=== PATIENT | female | born 1960 | race Caucasian/White ===

== ENCOUNTER 2016-12-17 13:04 | Emergency (ER) | payer OTHER ==
[~2016-12-17] VITALS: Wt 127.0 kg
[~2016-12-17 13:04] MED LIST: ADV25050 INHALATION; ALBU18HF INHALATION; BENA10TA48 PO; FURO20TA3 PO; HYDR-906 PO; IBUP-1542 PO; LEVO100T82 PO; METF-382 PO; MONT10TA24 PO; POTA20TA96 PO; SIMV40TA2 PO; TRIA1CAP PO
[2016-12-17 15:00] LABS: URINE BLOOD (Dip) POC Negative (NEGATIVE)
--- NOTE | 2016-12-17 15:13 | RADRPT ---
PROCEDURE: XR Chest. CLINICAL INDICATION: Cough. Left-sided chest pain. TECHNIQUE: Single frontal chest x-ray. COMPARISON: None. FINDINGS: The lungs are clear. No focal opacification is seen. The cardiomediastinal silhouette is unremarka ble. The osseous structures are unremarkable. Old right posterior fifth rib fracture is noted. IMPRESSION: No radiographic acute cardiopulmonary abnormalities. RPTAT: BB .Lars Mckay MD, MD Date Time Electronically viewed and signed by .Lars Mckay MD, on 12/17/2016 15:13 .O/
[2016-12-17] MEDS ORDERED: NAPR-260 PO (15:49)
--- NOTE | 2016-12-17 16:02 | ERD ---
ER Documentation Chief Complaint Date/Time DATE: 12/17/16 TIME: 15:58 Chief Complaint LEFT RIB PAIN X1 WEEK, COUGH, NO INJURY, NO CP HPI Patient is a 56-year-old female who presents the ED with left back rib pain, cough, runny nose and dysuria and urgency. She states that she has had the pain for 1 week on and off. She denies shortness of breath or difficulty breathing. She denies chest pain. She denies abdominal pain, nausea, vomiting or diarrhea. She denies headache or dizziness. Denies numbness or tingling. No other complaints. Denies fever or chills. ROS All systems reviewed and are negative except as per history of present illness. Medications Home Meds Active Scripts Naproxen* (Naprosyn*) 500 Mg Tablet, 500 MG PO BID Y for PAIN AND/OR INFLAMMATION, #30 TAB Prov:URIEL GIBBS PA-C 12/17/16 Ibuprofen* (Motrin*) 600 Mg Tab, 600 MG PO Q6, #20 TAB Prov:TD BAUTISTA NP 10/19/16 Hydrocodone/Acetaminophen ([place] 5-325 Tablet) 1 Each Tablet, 1 TAB PO Q6H Y for PAIN, #10 TAB Prov:TD BAUTISTA NP 10/19/16 Reported Medications Salmeterol Xinaf/Fluticasone* (Advair*) 250-50 Diskus Inhaler, 1 INH INHALATION BID, #1 INHALER 10/19/16 Montelukast Sodium* (Montelukast Sodium*) 10 Mg Tablet, 10 MG PO QHS, #30 TAB 10/19/16 Albuterol Sulfate* (Ventolin HFA*) 18 Gm Hfa.aer.ad, 2 PUFF INHALATION Q6H, #1 INHALER 10/19/16 Potassium Chloride* (Potassium Chloride*) 20 Meq Tablet.er, 20 MEQ PO BID, TAB.SA 10/19/16 Simvastatin* (Zocor*) 40 Mg Tablet, 40 MG PO QHS, #30 TAB 10/19/16 Benazepril Hcl* (Benazepril Hcl*) 10 Mg Tablet, 10 MG PO DAILY, #30 TAB 10/19/16 Metformin Hcl* (Metformin Hcl*) 500 Mg Tablet, 500 MG PO WITH BREAKFAST, #30 TAB 10/19/16 Furosemide* (Furosemide*) 20 Mg Tablet, 20 MG PO BID, #30 TAB 10/19/16 Triamterene/Hydrochlorothiazid (Dyazide 37.5-25 Capsule) 1 Each Capsule, 1 EACH PO DAILY, CAP 10/19/16 Levothyroxine Sodium* (Levoxyl*) 100 Mcg Tablet, 100 MCG PO BEFORE BREAKFAST, # 30 TAB 10/19/16 Allergies Allergies: Coded Allergies: No Known Allergy (Unverified , 12/17/16) PMhx/Soc History of Surgery: Yes (VARICOSE VEIN SX, ) Anesthesia Reaction: No Hx Neurological Disorder: No Hx Respiratory Disorders: Yes (ASTHMA) Hx Cardiac Disorders: Yes (HTN) Hx Psychiatric Problems: No Hx Miscellaneous Medical Probl: Yes (DM, THYROID) Hx Alcohol Use: No Hx Substance Use: No Hx Tobacco Use: No Physical Exam Vitals Vital Signs Date Time Temp Pulse Resp B/P Pulse Ox O2 Delivery O2 Flow Rate FiO2 12/17/16 13:14 98.2 99 18 173/100 97 Physical Exam GENERAL: Well-developed, well-nourished female. Appears in no acute distress. HEAD: Normocephalic, atraumatic. EYES: Pupils are equally reactive bilaterally. EOMs grossly intact. No conjunctival erythema. ENT: Moist mucous membranes. No uvula deviation. No kissing tonsils. No exudates. NECK: Supple. No lymphadenopathy or thyromegaly. No meningismus. negative kernig. negative brudinski. LUNG: Clear to auscultation bilaterally. No rhonchi, wheezing, rales or coarse breath sounds. HEART: Regular rate and rhythm. No murmurs, rubs or gallops. ABDOMEN: No scars, ecchymosis or rashes noted. Soft, nontender, and nondistended. Positive bowel sounds in all four quadrants. No rebound tenderness , no guarding. (-) McBurneys point tenderness. No CVA tenderness. BACK: No midline tenderness. tenderness to left upper back. no chest tenderness. Extremities: Equal pulses bilaterally. No peripheral clubbing, cyanosis or edema. No unilateral leg swelling. NEUROLOGIC: Alert and oriented. Moving all four extremities. 5/5 strength in all extremities. Normal speech. Steady gait. SKIN: Normal color. Warm and dry. No rashes or lesions. Capillary refill < 2 seconds Results 24 hrs Laboratory Tests Test 12/17/16 15:02 Bedside Urine Blood Negative Bedside Urine Glucose (UA) Negative Bedside Urine Ketones (LAB) Negative Bedside Urine Leukocyte Esterase (L Negative Bedside Urine Nitrite (LAB) Negative Bedside Urine Protein (LAB) Negative Bedside Urine pH (LAB) 6.0 Procedures/MDM ER COURSE: I kept the patient and/or family informed of laboratory and diagnostic imaging results throughout the emergency room course. EKG, MONITORS, & DIAGNOSTIC IMAGING: [place] [id number] Radiology Main Line: [phone] DIAGNOSTIC IMAGING REPORT Patient: EMMANUEL TA : 1960 Age: 56 Sex: F MR #: [id number] DOS: 12/17/16 1449 Ordering MD: URIEL GIBBS PA-C Location: [facility] Room/Bed: PROCEDURE: XR Chest. CLINICAL INDICATION: Cough. Left-sided chest pain. TECHNIQUE: Single frontal chest x-ray. COMPARISON: None. FINDINGS: The lungs are clear. No focal opacification is seen. The cardiomediastinal silhouette is unremarkable. The osseous structures are unremarkable. Old right posterior fifth rib fracture is noted. IMPRESSION: No radiographic acute cardiopulmonary abnormalities. RPTAT: BB .Lars Mckay MD, MD Date Time Electronically viewed and signed by .Lars Mckay MD, on 12/17/2016 15:13 .O/ CC: URIEL GIBBS PA-C LAB INTERPRETATION: UA showed no evidence of leukocytes, nitrites or hematuria. MEDICAL DECISION MAKING: This is a 56-year-old female who presents with left back pain and dysuria. Vital signs were reviewed. Patient is afebrile. Patient is not hypoxic. Patient is not toxic or ill-appearing. Patient likely has muscle strain. Low suspicion for cauda equine syndrome, spinal epidural hematoma, spinal epidural abscess, osteomyelitis, fracture, aortic dissection, AAA, pyelonephritis, nephrolithiasis, septic stone, obstructed stone. Patient does not have hematuria or nitrites. Patient does not have a UTI and have low suspicion for nephrolithiasis. Patient's blood pressure is 173/100 here in the ED. She does have a history of hypertension and takes an aspirin in the mornings. However she does not show signs of hypertensive urgency, emergency or endorgan damage or neurological issues.. Low suspicion for intracranial hemorrhage, meningitis, intracranial mass, concussion, temporal arteritis, stroke, elevated intracranial pressure, seizure. I have consulted with Dr. Oliva who has reviewed her vitals and plan and agrees with plan. DISCHARGE: At this time, patient is stable for discharge and outpatient management with no new complaints during the ER course. Patient was sent home with Alfredo. Patient to follow-up with primary care regarding better management of her blood pressure.. Patient will be discharged home with instructions to recheck for new or worsening symptoms such as fever, nausea, weakness, LOC and to follow up with primary care in the next 1-2 days. Patient was advised to return to the ER for any new or worsening symptoms. Plan was discussed and patient and/or family understands and agrees. Home instructions were given. Departure Diagnosis: Primary Impression: Rib pain Additional Impression: Hypertension Hypertension type: essential hypertension Qualified Code: I10 - Essential hypertension Condition: Stable Patient Instructions: Rib Contusion Referrals: ARLETH GUADARRAMA (PCP) Additional Instructions: Llame al doctor BERTRAM y teddy lise CARMEN PARA DENTRO DE 1-2 GOFF.Dgale a la secretaria que nosotros le instruimos hacer esta carmen.Avise o llame si herbert condicin se empeora antes de la carmen. Regresa aqui si peor o no mejor. URIEL GIBBS PA-C Dec 17, 2016 16:02
== END 2016-12-17 16:05 | disposition home or self-care (01) ==
LOC: FTE 13:04
DX: R07.81 Pleurodynia (principal); I10 Essential (primary) hypertension; J45.909 Unspecified asthma, uncomplicated; E11.9 Type 2 diabetes mellitus without complications; E03.9 Hypothyroidism, unspecified; Z79.84 Long term (current) use of oral hypoglycemic drugs
CPT/HCPCS: 71010; 81003

== ENCOUNTER 2017-05-23 11:14 | Emergency (ER) | payer OTHER ==
[~2017-05-23] VITALS: Ht 160 cm; Wt 130.0 kg
[~2017-05-23 11:14] MED LIST changes: -METF-382 PO; +METF500T4 PO; +NAPR-260 PO
[2017-05-23 11:15] VITALS: Ht 160 cm; Wt 130.0 kg
[2017-05-23] MEDS ORDERED: KETOROLAC 60 MG INJ IM STA (11:51)
[2017-05-23] MEDS ORDERED: morphine 10 MG INJ IM ONE (12:00)
--- NOTE | 2017-05-23 13:14 | RADRPT ---
PROCEDURE: Ultrasound of the bilateral lower extremity venous system. CLINICAL INDICATION: Bilateral leg pain and swelling, deep venous thrombosis TECHNIQUE: Davenport scale with and without compression, color doppler, spectral doppler of the venous system of the bilateral lower extremities was performed. Venous augmentation maneuvers were utilized . COMPARISON: No prior studies are available for comparison. FINDINGS: RIGHT: Common femoral vein: Patent. Femoral vein: Patent. Popliteal vein: Patent. Calf veins: Patent. No soft tissue abnormalities are identified. LEFT: Common femoral vein: Patent. Femoral vein: Patent. Popliteal vein: Patent. Calf veins: Patent. No soft tissue abnormalities are identified. IMPRESSION: No evidence of a deep vein thrombosis within the bilateral lower extremities. RPTAT: AADD .Pato Mcfadden MD, MD Date Time Electronically viewed and signed by .Pato Mcfadden MD, on 05/23/2017 13:13 .B/
[2017-05-23] MEDS ORDERED: METH500T PO (14:08)
[2017-05-23] MEDS ORDERED: HYDR-906 PO (14:08)
[2017-05-23] MEDS ORDERED: NAPR-688 PO (14:08)
[2017-05-23] MEDS ORDERED: GABA300C PO (14:10)
--- NOTE | 2017-05-23 14:16 | ERD ---
ER Documentation Chief Complaint Date/Time DATE: 05/23/17 TIME: 14:11 Chief Complaint 10 lower back pain that radiates down bilat legs x 1 month HPI This 56-year-old female presents with bilateral lower back pain as well as leg pain for 1 month. States that most of her pain is in her feet where she has a feeling of tingling and pain. She has a history of diabetes. She is still ambulatory. She has had no trauma recently. She has no fever chills. She does have a history of a right lower extremity DVT. ROS All systems reviewed and are negative except as per history of present illness. Medications Home Meds Active Scripts Gabapentin* (Neurontin*) 300 Mg Capsule, 300 MG PO BID, #60 CAP Prov:MACI MARTINEZ DO 05/23/17 Methocarbamol* (Robaxin*) 500 Mg Tab, 500 MG PO Q8, #14 TAB Prov:JUANMACI DO 05/23/17 Hydrocodone/Acetaminophen ([place] 5-325 Tablet) 1 Each Tablet, 1 EACH PO Q6, #14 TAB Prov:JUANMACI DO 05/23/17 Naproxen* (Naproxen*) 500 Mg Tablet, 500 MG PO BID Y for PAIN, #20 TAB Prov:MACI MARTINEZ DO 05/23/17 Naproxen* (Naprosyn*) 500 Mg Tablet, 500 MG PO BID Y for PAIN AND/OR INFLAMMATION, #30 TAB Prov:URIEL GIBBS PA-C 12/17/16 Ibuprofen* (Motrin*) 600 Mg Tab, 600 MG PO Q6, #20 TAB Prov:TD BAUTISTA NP 10/19/16 Hydrocodone/Acetaminophen ([place] 5-325 Tablet) 1 Each Tablet, 1 TAB PO Q6H Y for PAIN, #10 TAB Prov:TD BAUTISTA NP 10/19/16 Reported Medications Salmeterol Xinaf/Fluticasone* (Advair*) 250-50 Diskus Inhaler, 1 INH INHALATION BID, #1 INHALER 10/19/16 Montelukast Sodium* (Montelukast Sodium*) 10 Mg Tablet, 10 MG PO QHS, #30 TAB 10/19/16 Albuterol Sulfate* (Ventolin HFA*) 18 Gm Hfa.aer.ad, 2 PUFF INHALATION Q6H, #1 INHALER 10/19/16 Potassium Chloride* (Potassium Chloride*) 20 Meq Tablet.er, 20 MEQ PO BID, TAB.SA 10/19/16 Simvastatin* (Zocor*) 40 Mg Tablet, 40 MG PO QHS, #30 TAB 10/19/16 Benazepril Hcl* (Benazepril Hcl*) 10 Mg Tablet, 10 MG PO DAILY, #30 TAB 10/19/16 Metformin Hcl* (Metformin Hcl*) 500 Mg Tablet, 500 MG PO WITH BREAKFAST, #30 TAB 10/19/16 Furosemide* (Furosemide*) 20 Mg Tablet, 20 MG PO BID, #30 TAB 10/19/16 Triamterene/Hydrochlorothiazid (Dyazide 37.5-25 Capsule) 1 Each Capsule, 1 EACH PO DAILY, CAP 10/19/16 Levothyroxine Sodium* (Levoxyl*) 100 Mcg Tablet, 100 MCG PO BEFORE BREAKFAST, # 30 TAB 10/19/16 Allergies Allergies: Coded Allergies: No Known Allergy (Unverified , 05/23/17) PMhx/Soc History of Surgery: Yes (VARICOSE VEIN SX, ) Anesthesia Reaction: No Hx Neurological Disorder: No Hx Respiratory Disorders: Yes (ASTHMA) Hx Cardiac Disorders: Yes (HTN) Hx Psychiatric Problems: No Hx Miscellaneous Medical Probl: Yes (DM, THYROID) Hx Alcohol Use: No Hx Substance Use: No Hx Tobacco Use: No Physical Exam Vitals Vital Signs Date Time Temp Pulse Resp B/P Pulse Ox O2 Delivery O2 Flow Rate FiO2 05/23/17 11:15 97.7 93 18 128/75 97 Physical Exam Const: [] Mild distress Head: Atraumatic Eyes: Normal Conjunctiva ENT: Normal External Ears, Nose and Mouth. Neck: Full range of motion..~ No meningismus. Resp: Clear to auscultation bilaterally Cardio: Regular rate and rhythm, no murmurs Abd: Soft, non tender, non distended. Normal bowel sounds Skin: No petechiae or rashes Back: No midline or flank tenderness, bilateral paraspinal muscle tenderness and muscle spasm worse on the left than the right Ext: No cyanosis, or edema,Erythematous changes bilateral lower ankles consistent with venous stasis, no calor, no signs of infection. Distal pulses intact bilaterally Neur: Awake and alert and oriented 3, no focal deficits, bilateral lower extremity strength 5 out of 5. Psych: Normal Mood and Affect Results 24 hrs Current Medications Medications (Trade) Dose Ordered Sig/Shamir Route PRN Reason Start Time Stop Time Status Last Admin Dose Admin Morphine Sulfate (morphine) 4 mg ONCE ONCE IM 05/23/17 12:00 05/23/17 12:01 DC 05/23/17 12:22 Ketorolac Tromethamine (Toradol) 60 mg ONCE STAT IM 05/23/17 11:51 05/23/17 11:53 DC 05/23/17 12:22 Procedures/MDM Probable beginnings of diabetic neuropathy of the bilateral feet. Patient had a history of DVT and ultrasound was performed on both legs which was negative for DVT. She was given injection of Toradol as well as morphine which helped with her pain greatly. Admit to discharge her with Neurontin 300 twice daily for her neuropathy, naproxen, [place], Robaxin. I am having her follow-up with her primary care doctor as soon as possible to address the neuropathy problem. Return precautions the ER also given. Ultrasound bilateral lower extremity interpretation: No DVT Departure Diagnosis: Primary Impression: Back muscle spasm Condition: Stable Patient Instructions: Back Spasm, No Trauma, Neuropathy, Peripheral Additional Instructions: Llame al doctor MAANA y teddy lise CARMEN PARA DENTRO DE 2-3 GOFF.Dgale a la secretaria que nosotros le instruimos hacer esta carmen.Avise o llame si herbert condicin se empeora antes de la carmen. Regresa aqui si peor o no mejor. MACI MARTINEZ DO May 23, 2017 14:16
== END 2017-05-23 14:49 | disposition home or self-care (01) ==
LOC: FTE 11:14
DX: M62.830 Muscle spasm of back (principal); I10 Essential (primary) hypertension; J45.909 Unspecified asthma, uncomplicated; E11.9 Type 2 diabetes mellitus without complications; Z79.84 Long term (current) use of oral hypoglycemic drugs
CPT/HCPCS: 93970; 96372; J1885; J2270; Z7502